=== PATIENT | female | born 1965 | race Caucasian/White ===

== ENCOUNTER 2023-03-28 11:59 | Emergency (ER) | payer OTHER ==
[2023-03-28 12:08] VITALS: BP 125/80; PULSE 79; RESP 18; TEMP 98.9; BMI 25.8
[2023-03-28] MEDS ORDERED: DIPHTH,PERTUSS(ACELL),TET 0.5 ML DISP.SYRIN IM ONE ×2 (12:15→12:17)
== END 2023-03-28 12:25 | disposition home or self-care (01) ==
LOC: FER 11:59
PROC: 3E0234Z Introduction of Serum, Toxoid and Vaccine into Muscle, Percutaneous Approach (ICD-10-PCS; principal; 2023-03-28)
DX: S51.852A Open bite of left forearm, initial encounter (principal); W54.0XXA Bitten by dog, initial encounter
CPT/HCPCS: 90715; 99283-25